=== PATIENT | male | born 1975 | race Caucasian/White ===

== ENCOUNTER 2021-06-25 13:05 | Emergency (ER) | payer OTHER ==
--- OUTSIDE RECORDS SUMMARY | 2021-06-25 13:09 | XMS REPORT | Continuity of Care Document ---
:1975 Author Organization [facility] t Address [address] [place] [address] Care Team Providers Name Role Phone Lab, Fam Pob I Attending Clinician Unavailable Jon Rey Attending Clinician Jon HORTA Attending Clinician Unavailable Payers Payer Name Policy Type Policy Number Effective Date Expiration Date S mary [employer] CHOICE POS [id number] 00:00:00 II Problems This patient has no known problems. Allergies, Adverse Reactions, Alerts Allergy Allergy Status Severity Reaction(s) Onset Inactive Treating Comm ents Source Name Type Date Date Clinician NO KNOWN Drug Active [facility] ALLERGIE Class ity of [facility] Social History Social Habit Start Date Stop Date Quantity Comments [facility] to [facility] Smoking Status Start Date Stop Date Source Unknown if ever smoked [facility] Medications This patient has no known medications. Procedures This patient has no known procedures. Encounters Start End Encounter Admission Attending Care Care Encounter Source Date/Time Date/Time Type Type Clinicians Facility Department ID 2020-07-17 2020-07-17 Outpatient [facility] [id number] [facility] 2020-07-16 Outpatient [facility] [id number] [facility]:45[facility] 2020-06[facility]26 2020-06-26 Outpatient [facility] [id number] [facility] 12:40[facility]00 [facility]-10[facility]01 2019-10-01 Laboratory Lab, Adc Fam Pob I [facility] 1.2. [id number] [facility] 12:58:10 13:18:10 Only [facility] [id number] christiano [facility] [id number] James as Professio [id number] 2019-10-01 2019-10-01 Outpatient R YANY [facility] [id number] Univers 13:00:00 13:00:00 ASHLEY alvarado [facility] Results This patient has no known results.
[2021-06-25] MEDS ORDERED: HYDROCODONE/APAP 10/325 TAB ONE (13:32)
--- NOTE | 2021-06-25 13:56 | RAD REPORT ---
EXAM DESCRIPTION: RAD - Ankle Right 3 View - 06/25/2021 1:50 pm CLINICAL HISTORY: PAIN COMPARISON: No comparisons FINDINGS/IMPRESSION: No acute fracture. No malalignment. No significant focal degenerative changes. Soft tissue swelling is present laterally.
--- NOTE | 2021-06-25 14:50 | EDPHYS ---
Physician Documentation [facility] Name: Tree Persaud Age: 46 yrs Sex: Male : 1975 Arrival Date: 06/25/2021 Time: 13:08 Bed 18 Private MD: ED Physician Stan Saunders HPI: 06/25 13:35 This 46 yrs old Male presents to ER via Ambulatory with complaints of Fall Injury, pm1 Ankle Injury. 13:35 The patient presents with an injury. The complaints affect the lateral aspect right pm1 ankle. Onset: The symptoms/episode began/occurred today. Context: The problem was sustained outdoors, resulted from rolled his ankle while mowing lawn on a sloped surface, The mechanism of injury involved inversion of the affected ankle. The patient is unable to bear weight. Associated signs and symptoms: Pertinent positives: swelling, Pertinent negatives: calf tenderness, numbness. Modifying factors: The symptoms are alleviated by ice packs, the symptoms are aggravated by weight bearing, movement. Severity of symptoms: in the emergency department the symptoms are unchanged. The patient has not experienced similar symptoms in the past. The patient has not recently seen a physician. Historical: - Allergies: 13:19 No Known Allergies; ab2 - PMHx: 13:19 None; ab2 - PSHx: 13:19 None; ab2 - Immunization history:: Adult Immunizations up to date. - Social history:: Smoking status: Patient denies any tobacco usage or history of. ROS: 13:35 Constitutional: Negative for fever, chills, and weight loss, Skin: Negative for injury, pm1 rash, and discoloration, Neuro: Negative for headache, weakness, numbness, tingling, and seizure. 13:35 MS/extremity: Positive for swelling, tenderness, of the lateral aspect right ankle. 13:35 All other systems are negative. Exam: 13:35 Constitutional: This is a well developed, well nourished patient who is awake, alert, pm1 and in no acute distress. Head/Face: Normocephalic, atraumatic. 13:35 Skin: Warm, dry with normal turgor. Normal color with no rashes, no lesions, and no evidence of cellulitis. 13:35 Cardiovascular: Exam negative for acute changes, Rate: normal, Rhythm: regular, Pulses: no pulse deficits are appreciated. 13:35 Respiratory: Exam negative for acute changes, respiratory distress, shortness of breath. 13:35 Musculoskeletal/extremity: Extremities: grossly normal except: noted in the lateral aspect of right ankle: swelling, tenderness, There is no evidence of decreased ROM, patient able to move ankle FROM actively. 13:35 Neuro: Exam negative for acute changes, Orientation: is normal, Mentation: is normal, Motor: moves all fours. Vital Signs: 13:15 BP 139 / 83; Pulse 61; Resp 16; Temp 97.4; Pulse Ox 99% on R/A; Weight 90.72 kg; Height ab2 6 ft. 0 in. (182.88 cm); Pain 5/10; 14:49 BP 133 / 86; Pulse 58; Resp 17 S; Pulse Ox 98% on R/A; jd3 13:15 Body Mass Index 27.12 (90.72 kg, 182.88 cm) ab2 Procedures: 15:48 Splinting: Splint applied to right ankle using Orthoglass splint, applied by tech. pm1 Examined by me, post splint application: neurovascular intact, 2+ distal pulses palpable, brisk capillary refill noted, Patient tolerated well. MDM: 13:30 Patient medically screened. pm1 14:49 Data reviewed: vital signs. Data interpreted: Pulse oximetry: on room air is 99 %. pm1 Interpretation: normal. Counseling: I had a detailed discussion with the patient and/or guardian regarding: the historical points, exam findings, and any diagnostic results supporting the discharge/admit diagnosis, radiology results, the need for outpatient follow up, a orthopedic surgeon, to return to the emergency department if symptoms worsen or persist or if there are any questions or concerns that arise at home. 06/25 13:26 Order name: Ankle Right 3 View XRAY; Complete Time: 14:16 pm1 06/25 14:49 Order name: Splint - Ankle: Orthoglass: Stirrup; Complete Time: 15:11 pm1 Administered Medications: 13:35 Drug: [place] (HYDROcodone-acetaminophen) 10 mg-325 mg 1 tabs Route: PO; jd3 14:35 Follow up: Response: No adverse reaction; RASS: Alert and Calm (0) jd3 Disposition Summary: 06/25/21 14:50 Discharge Ordered Location: Home pm1 Problem: new pm1 Symptoms: have improved pm1 Condition: Stable pm1 Diagnosis - Sprain of unspecified ligament of right ankle pm1 Followup: pm1 - With: Emergency Department - When: As needed - Reason: Worsening of condition Followup: pm1 - With: Private Physician - When: 2 - 3 days - Reason: Recheck today's complaints, Continuance of care, Re-evaluation by your physician Discharge Instructions: - Discharge Summary Sheet pm1 - Ankle Sprain pm1 - Cast or Splint Care, Adult pm1 - Crutch Use, Adult pm1 Forms: - Medication Reconciliation Form pm1 - Thank You Letter pm1 - Antibiotic Education pm1 - Prescription Opioid Use pm1 Prescriptions: - Tylenol-Codeine #3 300 mg-30 mg Oral - take 2 tablet by ORAL route every 6 hours As needed; 20 tablet; Refills: 0, pm1 Product Selection Permitted Addendum: 06/28/2021 07:14 Co-signature as Attending Physician, Stan Saunders MD I agree with the assessment and c barker plan of care. Signatures: Dispatcher [employer] EDMT Stan Saunders MD MD cha Marinas, Patrick, WIND TURBINE PERFORMANCE ENGINEER WIND [employer]URBINE PERFORMANCE ENGINEER pm1 Siddharth Rucker, RN RN jd3 Helio Ochoa2 Corrections: (The following items were deleted from the chart) 06/25 15:11 14:49 Crutches ordered. pm1 jd3
--- NOTE | 2021-06-25 14:50 | ER ---
Nurse's Notes [facility] Name: Tree Persaud Age: 46 yrs Sex: Male : 1975 Arrival Date: 06/25/2021 Time: 13:08 Bed 18 Private MD: Diagnosis: Sprain of unspecified ligament of right ankle Presentation: 06/25 13:15 Chief complaint: Patient states: "I was mowing the grass and I was on the side of a ab2 hill and when I stepped down I rolled my ankle." Pt has significant swelling to right ankle. Coronavirus screen: Vaccine status: Patient reports receiving the 2nd dose of the covid vaccine. Client denies travel out of the [place] in the last 14 days. At this time, the client does not indicate any symptoms associated with coronavirus-19. Ebola Screen: Patient negative for fever greater than or equal to 101.5 degrees Fahrenheit, and additional compatible Ebola Virus Disease symptoms Patient denies exposure to infectious person. Patient denies travel to an Ebola-affected area in the 21 days before illness onset. No symptoms or risks identified at this time. Initial Sepsis Screen: Does the patient meet any 2 criteria? No. Patient's initial sepsis screen is negative. Does the patient have a suspected source of infection? No. Patient's initial sepsis screen is negative. Risk Assessment: Do you want to hurt yourself or someone else? Patient reports no desire to harm self or others. Onset of symptoms is unknown. 13:15 Method Of Arrival: Ambulatory ab2 13:15 Acuity: BENITA 4 ab2 Triage Assessment: 13:19 General: Appears in no apparent distress. uncomfortable, Behavior is calm, cooperative, ab2 appropriate for age. Pain: Complains of pain in right ankle and lateral aspect of right foot Pain currently is 5 out of 10 on a pain scale. Injury Description: Rolled ankle. Historical: - Allergies: 13:19 No Known Allergies; ab2 - PMHx: 13:19 None; ab2 - PSHx: 13:19 None; ab2 - Immunization history:: Adult Immunizations up to date. - Social history:: Smoking status: Patient denies any tobacco usage or history of. Screenin:36 Abuse screen: Denies threats or abuse. Nutritional screening: No deficits noted. jd3 Tuberculosis screening: No symptoms or risk factors identified. Fall Risk Ambulatory Aid- None/Bed Rest/Nurse Assist (0 pts). Gait- Normal/Bed Rest/Wheelchair (0 pts) Mental Status- Oriented to own ability (0 pts). Total Mckeon Fall Scale indicates No Risk (0-24 pts). Assessment: 13:35 General: Appears in no apparent distress. uncomfortable, Behavior is calm, cooperative, jd3 appropriate for age. Pain: Complains of pain in right ankle Quality of pain is described as sharp, tender. Neuro: Level of Consciousness is awake, alert, obeys commands, Oriented to person, place, time, situation. Cardiovascular: Denies chest pain, Capillary refill < 3 seconds Patient's skin is warm and dry. Respiratory: Airway is patent Respiratory effort is even, unlabored, Respiratory pattern is regular, symmetrical, Denies cough, shortness of breath. GI: No signs and/or symptoms were reported involving the gastrointestinal system. : No signs and/or symptoms were reported regarding the genitourinary system. EENT: No signs and/or symptoms were reported regarding the EENT system. Derm: Skin is intact, Skin is dry, Skin is normal, Skin temperature is warm. Musculoskeletal: Circulation, motion, and sensation intact. Range of motion: limited in right ankle Swelling present in right ankle. 14:45 Reassessment: Patient appears in no apparent distress at this time. Patient and/or jd3 family updated on plan of care and expected duration. Pain level reassessed. Patient is alert, oriented x 3, equal unlabored respirations, skin warm/dry/pink. provider at bedside discussing results and plan of care. 15:09 Reassessment: Patient appears in no apparent distress at this time. Patient and/or jd3 family updated on plan of care and expected duration. Pain level reassessed. Patient is alert, oriented x 3, equal unlabored respirations, skin warm/dry/pink. ortho-glass splint applied. pt refusing crutches. pt and reported understanding of discharge instructions and fallow-up care. Vital Signs: 13:15 BP 139 / 83; Pulse 61; Resp 16; Temp 97.4; Pulse Ox 99% on R/A; Weight 90.72 kg; Height ab2 6 ft. 0 in. (182.88 cm); Pain 5/10; 14:49 BP 133 / 86; Pulse 58; Resp 17 S; Pulse Ox 98% on R/A; jd3 13:15 Body Mass Index 27.12 (90.72 kg, 182.88 cm) ab2 ED Course: 13:08 Patient arrived in ED. mr 13:19 Triage completed. ab2 13:20 Arm band placed on right wrist. ab2 13:26 Loi Burris NP is PHCP. pm1 13:26 Stan Saunders MD is Attending Physician. pm1 13:27 Siddharth Rucker, RN is Primary Nurse. jd3 13:36 Ice pack to injury. jd3 13:37 Patient has correct armband on for positive identification. Bed in low position. Call jd3 light in reach. Side rails up X 1. Adult w/ patient. Pulse ox on. NIBP on. 13:51 Ankle Right 3 View XRAY In Process Unspecified. EDMS 15:10 No provider procedures requiring assistance completed. Patient did not have IV access jd3 during this emergency room visit. Administered Medications: 13:35 Drug: [place] (HYDROcodone-acetaminophen) 10 mg-325 mg 1 tabs Route: PO; jd3 14:35 Follow up: Response: No adverse reaction; RASS: Alert and Calm (0) jd3 Outcome: 14:50 Discharge ordered by . pm1 15:10 Discharged to home ambulatory, with family, using knee scooter jd3 15:10 Condition: stable 15:10 Discharge instructions given to patient, family, Instructed on discharge instructions, follow up and referral plans. medication usage, Demonstrated understanding of instructions, follow-up care, medications, Prescriptions given X 1. 15:11 Patient left the ED. jd3 Signatures: Dispatcher [employer] EDDC Mati Brooklyn BurrisLoi, ISAC TOP EXECUTIVE pm1 Siddharth Rucker, RN RN jd3 Helio Ochoa ab2
[2021-06-25 15:16] VITALS: TEMP 97.4
[2021-06-25 15:17] VITALS: BP 133/86; O2SAT 98
== END 2021-06-25 15:11 | disposition home or self-care (01) ==
LOC: ER 13:05
PROC: 2W3QX1Z Immobilization of Right Lower Leg using Splint (ICD-10-PCS; principal; 2021-06-25)
DX: S93.402A Sprain of unspecified ligament of left ankle, initial encounter (principal); X50.1XXA Overexertion from prolonged static or awkward postures, initial encounter; Y93.H9 Activity, other involving exterior property and land maintenance, building and construction; Y92.017 Garden or yard in single-family (private) house as the place of occurrence of the external cause
CPT/HCPCS: 99284